=== PATIENT | female | born 1975 | race Caucasian/White ===

== ENCOUNTER 2017-01-22 06:55 | Day surgery (SDC) | payer BC ==
[~2017-01-22] VITALS: Ht 162.6 cm; Wt 55.3 kg
[~2017-01-22 06:55] MED LIST: LEXAPRO20 MG PO; ONDANSETRON4 MG PO
[2017-01-22] MEDS ORDERED: PERCOCET 5/325M1 TAB PO (11:06)
[2017-01-22 14:16] VITALS: BP 104/57
== END 2017-01-22 11:55 | disposition home or self-care (01) | DRG 419 ==
LOC: ORM 06:55
PROVIDERS: ATTEND Surgery
PROC: 0FT44ZZ Resection of Gallbladder, Percutaneous Endoscopic Approach (ICD-10-PCS; principal; 2017-01-22)
DX: K80.10 Calculus of gallbladder with chronic cholecystitis without obstruction (principal)
CPT/HCPCS: J2710

== ENCOUNTER 2017-07-02 20:13 | Emergency (ER) | payer BC ==
[~2017-07-02] VITALS: Ht 162.6 cm; Wt 59.0 kg
[~2017-07-02 20:13] MED LIST changes: +PERCOCET 5/325M1 TAB PO
[2017-07-02] MEDS ORDERED: LORTAB 1010 MG PO (21:54)
[2017-07-02 22:10] VITALS: BP 111/66
== END 2017-07-02 22:10 | disposition home or self-care (01) | DRG 563 ==
LOC: ED 20:13
DX: S83.91XA Sprain of unspecified site of right knee, initial encounter (principal); W18.30XA Fall on same level, unspecified, initial encounter; Y92.009 Unspecified place in unspecified non-institutional (private) residence as the place of occurrence of the external cause

== ENCOUNTER 2018-06-13 13:07 | Emergency (ER) | payer BC ==
[~2018-06-13] VITALS: Ht 162.6 cm; Wt 68.0 kg
[~2018-06-13 13:07] MED LIST changes: +LORTAB 1010 MG PO
[2018-06-13 13:50] LABS: HEMATOCRIT 41.8 % (37.0-47.0); HEMOGLOBIN 13.4 g/dl (12.0-16.0); MEAN CELL VOLUME 93.1 fL CALC (80.0-100.0); MEAN CORPUSCULAR HGB 29.8 pG CALC (26.0-32.0); MEAN CORPUSCULAR HGB CONC 32.1 g/L CALC (32.0-36.0); RED BLOOD COUNT 4.49 mill/uL (4.20-5.60); RED CELL DISTRI WIDTH 12.3 % (11.5-15.5)
[2018-06-13 13:59] LABS: ALBUMIN 4.2 g/dL (3.2-5.0); ALKALINE PHOSPHATASE 92 u/l (38-126); ANION GAP 13 (6-22 (CALC)); BILIRUBIN, TOTAL 0.8 mg/dL (0.0-1.4); BUN 17 mg/dL (7-17); BUN/CREATININE RATIO 21 (12-20 (CALC)); CARBON DIOXIDE 28 mmol/l (22-30); CHLORIDE 101 mmol/l (95-108); CREATININE 0.8 mg/dL (0.5-1.0); GFR > 60 ML/MIN (>=60 (CALC)); GFR FOR AFR.AMER. > 60 ML/MIN (>=60 (CALC)); LIPASE 138 u/l (23-300); POTASSIUM 3.9 mmol/l (3.5-5.1); SODIUM 138 mmol/l (137-146); TOTAL PROTEIN 7.2 g/dL (6.3-8.2)
[2018-06-13 14:14] LABS: SGOT/AST 276 u/l (14-36)
[2018-06-13] MEDS ORDERED: PRILOSEC20 MG PO (16:08)
[2018-06-13] MEDS ORDERED: AMITRIPTYLIN25 MG PO (16:08)
[2018-06-13] MEDS ORDERED: MELOXICAM15 MG PO (16:08)
[2018-06-13] MEDS ORDERED: ULTRAM50 M1 PO (18:09)
[2018-06-13 18:30] VITALS: BP 98/55
== END 2018-06-13 18:30 | disposition home or self-care (01) | DRG 392 ==
LOC: ED 13:07
PROVIDERS: Emergency Medicine
DX: R10.13 Epigastric pain (principal); R11.0 Nausea; K21.9 Gastro-esophageal reflux disease without esophagitis; R94.31 Abnormal electrocardiogram [ECG] [EKG]
CPT/HCPCS: Q9967

== ENCOUNTER 2021-07-12 17:05 | Emergency (ER) | payer BC ==
[2021-07-12] VITALS (10 sets, daily range): BP systolic 99–126; BP diastolic 56–72
[~2021-07-12] VITALS: Ht 162.6 cm; Wt 68.0 kg
[~2021-07-12 17:05] MED LIST changes: +AMITRIPTYLIN25 MG PO; +MELOXICAM15 MG PO; +PRILOSEC20 MG PO; +ULTRAM50 M1 PO
[2021-07-12 17:46] LABS: HEMATOCRIT 41.7 % (37.0-47.0); IMMATURE GRANULOCYTES 0.2 % (0.0-5.0); MEAN CELL VOLUME 89.1 fL CALC (80.0-100.0); MEAN CORPUSCULAR HGB 29.9 pG CALC (26.0-32.0); MEAN CORPUSCULAR HGB CONC 33.6 g/dL CAL (32.0-36.0); NEUT# 2.12 thou/uL (2.00-7.15); RED BLOOD COUNT 4.68 mill/uL (4.20-5.60); RED CELL DISTRI WIDTH 12.5 % (11.5-15.5)
[2021-07-12 17:59] LABS: ALBUMIN 4.2 g/dL (3.2-5.0); ALKALINE PHOSPHATASE 74 u/l (38-126); BILIRUBIN, TOTAL 0.5 mg/dL (0.0-1.4); BUN 9 mg/dL (7-17); BUN/CREATININE RATIO 9 (12-20 (CALC)); CARBON DIOXIDE 28 mmol/l (22-30); CHLORIDE 98 mmol/l (95-108); CPK 135 u/l (30-165); GFR 60 ML/MIN (>=60 (CALC)); GFR FOR AFR.AMER. > 60 ML/MIN (>=60 (CALC)); LIPASE 88 u/l (23-300); MAGNESIUM 1.9 mg/dL (1.6-2.3); SGOT/AST 40 u/l (14-36); TOTAL PROTEIN 7.3 g/dL (6.3-8.2)
[2021-07-12 18:00] LABS: ANION GAP 10 (6-22 (CALC)); POTASSIUM 3.3 mmol/l (3.5-5.1); SODIUM 133 mmol/l (137-146)
== END 2021-07-12 21:57 | disposition home or self-care (01) | DRG 948 ==
LOC: ED 17:05
PROVIDERS: Internal Medicine
DX: R53.1 Weakness (principal); R42 Dizziness and giddiness; R00.2 Palpitations; R06.02 Shortness of breath; R94.31 Abnormal electrocardiogram [ECG] [EKG]; K21.9 Gastro-esophageal reflux disease without esophagitis; F32.A Depression, unspecified; F41.9 Anxiety disorder, unspecified

== ENCOUNTER 2021-12-23 21:14 | Observation (INO) | payer BC ==
[~2021-12-23] VITALS: Ht 162.6 cm; Wt 65.0 kg
[2021-12-23 21:19] VITALS: BP 106/84
[2021-12-23 21:30] VITALS: BP 107/66
[2021-12-23 21:32] VITALS: BP 101/76
[2021-12-23 21:43] LABS: HEMATOCRIT 41.6 % (37.0-47.0); HEMOGLOBIN 13.9 g/dl (12.0-16.0); IMMATURE GRANULOCYTES 0.2 % (0.0-5.0); MEAN CELL VOLUME 89.1 fL CALC (80.0-100.0); MEAN CORPUSCULAR HGB 29.8 pG CALC (26.0-32.0); MEAN CORPUSCULAR HGB CONC 33.4 g/dL CAL (32.0-36.0); NEUT# 3.69 thou/uL (2.00-7.15); RED BLOOD COUNT 4.67 mill/uL (4.20-5.60); RED CELL DISTRI WIDTH 12.6 % (11.5-15.5)
[2021-12-23 22:00] VITALS: BP 115/75
[2021-12-23 22:01] LABS: ALBUMIN 4.6 g/dL (3.2-5.0); ANION GAP 15 (6-22 (CALC)); BUN 13 mg/dL (7-17); BUN/CREATININE RATIO 12 (12-20 (CALC)); CARBON DIOXIDE 25 mmol/l (22-30); CHLORIDE 98 mmol/l (95-108); CREATININE 1.1 mg/dL (0.5-1.0); GFR FOR AFR.AMER. > 60 ML/MIN (>=60 (CALC)); GFR OTHER RACES 54 ML/MIN (>=60 (CALC)); POTASSIUM 3.1 mmol/l (3.5-5.1); SODIUM 135 mmol/l (137-146)
--- NOTE | 2021-12-23 22:05 | NUR ---
ASSUMED CARE FROM PRIETO MONCADA
[2021-12-23 22:12] LABS: ALKALINE PHOSPHATASE 120 u/l (38-126); BILIRUBIN, TOTAL 0.8 mg/dL (0.0-1.4); LIPASE 2514 u/l (23-300); MYOGLOBIN 123 ng/mL (0 - 62); SGOT/AST 93 u/l (14-36)
[2021-12-23 22:26] LABS: URINE BLOOD DIPSTICK NEGATIVE (NEGATIVE); URINE COLOR YELLOW; URINE GLUCOSE - DIPSTICK NEGATIVE (NEGATIVE); URINE KETONE TRACE mg/dL (NEGATIVE); URINE PH 6.5 (4.5-8.0); URINE PROTEIN - DIPSTICK 100 mg/dL (NEG-TRACE); URINE SPECIFIC GRAVITY 1.025
[2021-12-23 22:27] LABS: URINE BILIRUBIN - DIPSTICK MODERATE (NEGATIVE); URINE LEUK ESTERASE SMALL (NEGATIVE); URINE NITRITE - DIPSTICK NEGATIVE (Negative)
[2021-12-23 22:30] VITALS: BP 105/62
[2021-12-23 22:32] LABS: URINE BACTERIA FEW hpf; URINE MUCUS MANY hpf (NONE-FEW); URINE SQUAMOUS EPITHELIAL CELL FEW EPI/hpf (0-FEW)
[2021-12-23 23:30] VITALS: BP 90/45
[2021-12-24] VITALS: BP 96/55
[2021-12-24 00:30] VITALS: BP 95/53
--- NOTE | 2021-12-24 01:00 | NUR ---
RECEIVED INTO ROOM 266 FROM ED VIA WC. TRANSFERRED TO BED INDEPENDANTLY. DENIES ANY PAIN, NAUSEA OR VOMITING AT THE PRESENT. CALL LIGHT PLACED IN REACH AND PATIENT ORIENTED TO ROOM AND USE OF LIGHT.
[2021-12-24 01:01] VITALS: BP 86/44
[2021-12-24 08:11] VITALS: BP 134/86
--- NOTE | 2021-12-24 08:20 | NUR ---
RECIEVED REPORT. PT RESTING IN SEMI FOWLERS POSITION. PT A/OX3. RESPIRATIONS EVEN AND UNLABORED ON ROOM AIR. LUNG SOUNDS CLEAR. HEART RHYTHM NORMAL. BOWEL SOUNDS ACTIVE. #20G RAC INFUSING WITH IVF PER ORDER, SITE PATENT. SKIN INTACT. PT DENIES OF ANY PAINS OR DISCOMFORTS. ALL SAFTEY PRECAUTIONS ARE IN PLACE WITH CALL LIGHT IN REACH. ISOLATION PRECAUTIONS IN PLACE
[2021-12-24 08:51] LABS: HEMATOCRIT 36.7 % (37.0-47.0); HEMOGLOBIN 11.9 g/dl (12.0-16.0); MEAN CELL VOLUME 91.3 fL CALC (80.0-100.0); MEAN CORPUSCULAR HGB 29.6 pG CALC (26.0-32.0); MEAN CORPUSCULAR HGB CONC 32.4 g/dL CAL (32.0-36.0); RED BLOOD COUNT 4.02 mill/uL (4.20-5.60); RED CELL DISTRI WIDTH 12.9 % (11.5-15.5)
[2021-12-24 09:17] LABS: BILIRUBIN, TOTAL 0.5 mg/dL (0.0-1.4)
[2021-12-24 09:22] LABS: ALBUMIN 3.5 g/dL (3.2-5.0); TOTAL PROTEIN 6.3 g/dL (6.3-8.2)
[2021-12-24] MEDS ORDERED: ZOFRAN4 MG/TAB PO (11:32)
--- NOTE | 2021-12-24 11:48 | NUR ---
PT RESTING IN SEMI FOWLERS POSITION. RESPIRATIONS EVEN AND UNLABORED ON ROOM AIR. IV ISTE NOTED. PT DENIES OF ANY COMPLAINTS. ALL SAFTEY PRECAUTIONS AR EIN PLACE WITH CALL LIGHT IN REACH
--- NOTE | 2021-12-24 12:34 | NUR ---
Discharge instructions given. Patient verbalizes understanding of same. Discharged in stable condition via Wheelchair to Home with staff. All belongings sent with pt. PT EDUCATED ON DC INSTRUCTIONS AND NEW MEDICATIONS. PT VERBLAIZED UNDERSTANDING. IV REMOVED WITH CATH INTACT
== END 2021-12-24 12:36 | disposition home or self-care (01) | DRG 177 ==
LOC: ED 21:14 → MS2 23:42
PROVIDERS: Family Medicine; Nurse Practitioner; ADMIT Internal Medicine; ATTEND Internal Medicine
DX: U07.1 COVID-19 (principal); K85.90 Acute pancreatitis without necrosis or infection, unspecified; E87.6 Hypokalemia; F41.9 Anxiety disorder, unspecified; F32.A Depression, unspecified; K21.9 Gastro-esophageal reflux disease without esophagitis; H81.09 Meniere's disease, unspecified ear; Z28.310 Unvaccinated for COVID-19
CPT/HCPCS: G0378; J1650; Q9967; S0164

== ENCOUNTER 2022-11-29 12:36 | Emergency (ER) | payer SELFPAY ==
[~2022-11-29] VITALS: Ht 162.6 cm; Wt 65.7 kg
[2022-11-29] VITALS (9 sets, daily range): BP systolic 96–125; BP diastolic 60–78
[~2022-11-29 12:36] MED LIST changes: +ZOFRAN4 MG/TAB PO
[2022-11-29 12:59] LABS: URINE BILIRUBIN - DIPSTICK Negative (NEGATIVE); URINE BLOOD DIPSTICK Negative (NEGATIVE); URINE GLUCOSE - DIPSTICK Negative (NEGATIVE); URINE KETONE Negative (NEGATIVE); URINE NITRITE - DIPSTICK Negative (Negative); URINE PROTEIN - DIPSTICK Negative (NEG-TRACE); URINE SPECIFIC GRAVITY >=1.030; URINE UROBILINOGEN - DIPSTICK 0.2 E.U./dL (0.2)
[2022-11-29 13:00] LABS: URINE COLOR Yellow; URINE LEUK ESTERASE Small (NEGATIVE)
[2022-11-29 13:03] LABS: URINE BACTERIA FEW hpf; URINE SQUAMOUS EPITHELIAL CELL FEW EPI/hpf (0-FEW)
[2022-11-29 13:05] LABS: URINE TRANSITIONAL EPI. CELLS FEW hpf
[2022-11-29 13:22] LABS: EOS% 1.8 % (0-8); HEMATOCRIT 40.4 % (37.0-47.0); HEMOGLOBIN 13.6 g/dl (12.0-16.0); LYMPH% 27.9 % (15-41); MEAN CORPUSCULAR HGB 30.3 pG CALC (26.0-32.0); MEAN CORPUSCULAR HGB CONC 33.7 g/dL CAL (32.0-36.0); MONO% 12.1 % (2-13); NEUT# 2.89 thou/uL (2.00-7.15); NEUT% 57.2 % (42-76); RED BLOOD COUNT 4.49 mill/uL (4.20-5.60); RED CELL DISTRI WIDTH 12.9 % (11.5-15.5)
[2022-11-29 13:50] LABS: BILIRUBIN, TOTAL 0.6 mg/dL (0.02-1.3); CREATININE 1.2 mg/dL (0.5-1.0); POTASSIUM 3.6 mmol/l (3.5-5.1)
[2022-11-29 13:51] LABS: ALBUMIN 4.4 g/dL (3.2-5.0); TOTAL PROTEIN 7.8 g/dL (6.3-8.2)
[2022-11-29] MEDS ORDERED: KEFLEX500 MG PO (15:39)
[2022-11-29] MEDS ORDERED: TRAMADOL HYDROC50 M1 PO (15:39)
[2022-11-29] MEDS ORDERED: MIRALAX17 GM PO (15:39)
== END 2022-11-29 15:40 | disposition home or self-care (01) | DRG 392 ==
LOC: ED 12:36
PROVIDERS: Nurse Practitioner
DX: K59.00 Constipation, unspecified (principal); N39.0 Urinary tract infection, site not specified; F41.9 Anxiety disorder, unspecified; F32.A Depression, unspecified; K21.9 Gastro-esophageal reflux disease without esophagitis

== ENCOUNTER 2023-10-23 19:49 | Emergency (ER) | payer BC ==
[~2023-10-23] VITALS: Ht 162.6 cm; Wt 65.0 kg
[~2023-10-23 19:49] MED LIST changes: +KEFLEX500 MG PO; +MIRALAX17 GM PO; +TRAMADOL HYDROC50 M1 PO
[2023-10-23] MEDS ORDERED: Pantoprazole Sodium 40 MG VIAL (Protonix) IV STA (20:10)
[2023-10-23] MEDS ORDERED: SODIUM CHLORIDE 0.9% 1,000 ML IV STA (20:10)
[2023-10-23] MEDS ORDERED: PROMETHAZINE HCL 25 MG/ML AMP IV ONE (20:15)
[2023-10-23] MEDS ORDERED: KETOROLAC TROMETHAMINE 30 MG/ML SDV IV ONE (20:15)
[2023-10-23 20:42] VITALS: BP 106/66
[2023-10-23 20:46] VITALS: BP 99/64
[2023-10-23 20:57] LABS: BASO% 0.6 % (0-3); EOS% 0.4 % (0-8); HEMATOCRIT 42.3 % (37.0-47.0); HEMOGLOBIN 14.1 g/dl (12.0-16.0); LYMPH% 25.5 % (15-41); MEAN CELL VOLUME 87.4 fL CALC (80.0-100.0); MEAN CORPUSCULAR HGB 29.1 pG CALC (26.0-32.0); MEAN CORPUSCULAR HGB CONC 33.3 g/dL CAL (32.0-36.0); MONO% 13.2 % (2-13); NEUT# 2.89 thou/uL (2.00-7.15); NEUT% 60.3 % (42-76); RED BLOOD COUNT 4.84 mill/uL (4.20-5.60); RED CELL DISTRI WIDTH 12.8 % (11.5-15.5)
[2023-10-23 21:00] VITALS: BP 94/66
[2023-10-23 21:08] LABS: ALBUMIN 4.6 g/dL (3.2-5.0); BILIRUBIN, TOTAL 0.5 mg/dL (0.02-1.3); CREATININE 1.3 mg/dL (0.5-1.0); POTASSIUM 3.2 mmol/l (3.5-5.1); TOTAL PROTEIN 7.9 g/dL (6.3-8.2)
[2023-10-23 21:09] LABS: URINE BLOOD DIPSTICK Negative (NEGATIVE); URINE GLUCOSE - DIPSTICK Negative (NEGATIVE); URINE KETONE Trace mg/dL (NEGATIVE); URINE LEUK ESTERASE Negative (NEGATIVE); URINE NITRITE - DIPSTICK Negative (Negative); URINE PROTEIN - DIPSTICK 30 mg/dL (NEG-TRACE); URINE SPECIFIC GRAVITY >=1.030
[2023-10-23 21:10] LABS: URINE COLOR Yellow; URINE RBC 0-2 RBC/hpf (0-5); URINE SQUAMOUS EPITHELIAL CELL FEW EPI/hpf (0-FEW); URINE WBC 0-2 WBC/hpf (0-5)
[2023-10-23] MEDS ORDERED: DICYCLOMINE HCL 20 MG/2 ML VIAL IM ONE (21:40)
[2023-10-24] VITALS: BP 102/67
[2023-10-24] MEDS ORDERED: DICYCLOMINE HYD10 MG PO (00:04)
[2023-10-24] MEDS ORDERED: PROMETHAZINE HY25 M1 PO (00:04)
== END 2023-10-24 01:00 | disposition home or self-care (01) | DRG 392 ==
LOC: ED 19:49
PROVIDERS: Family Medicine
DX: A08.4 Viral intestinal infection, unspecified (principal); F17.290 Nicotine dependence, other tobacco product, uncomplicated; Z20.822 Contact with and (suspected) exposure to COVID-19
CPT/HCPCS: J2470; Q9967

== ENCOUNTER 2024-03-18 09:10 | Emergency (ER) | payer BC ==
[2024-03-18] VITALS (8 sets, daily range): BP systolic 109–126; BP diastolic 62–73
[~2024-03-18] VITALS: Ht 162.6 cm; Wt 65.0 kg
[~2024-03-18 09:10] MED LIST changes: +DICYCLOMINE HYD10 MG PO; +PROMETHAZINE HY25 M1 PO
[2024-03-18] MEDS ORDERED: predniSONE 20 MG/TAB PO ONE (10:25)
[2024-03-18] MEDS ORDERED: IPRATROPIUM-Albuterol 0.5MG-2.5MG/3 ML NEB ONE ×2 (10:25)
[2024-03-18 10:42] LABS: HEMATOCRIT 40.6 % (37.0-47.0); HEMOGLOBIN 13.2 g/dl (12.0-16.0); LYMPH% 26.9 % (15-41); MEAN CELL VOLUME 89.4 fL CALC (80.0-100.0); MEAN CORPUSCULAR HGB 29.1 pG CALC (26.0-32.0); MEAN CORPUSCULAR HGB CONC 32.5 g/dL CAL (32.0-36.0); MONO% 10.9 % (2-13); NEUT# 2.17 thou/uL (2.00-7.15); NEUT% 62.2 % (42-76); RED BLOOD COUNT 4.54 mill/uL (4.20-5.60); RED CELL DISTRI WIDTH 13.3 % (11.5-15.5)
[2024-03-18 10:54] LABS: ALBUMIN 4.3 g/dL (3.2-5.0); ALKALINE PHOSPHATASE 87 u/l (38-126); ANION GAP 10 (6-22 (CALC)); BILIRUBIN, TOTAL 0.4 mg/dL (0.02-1.3); BUN 13 mg/dL (7-17); BUN/CREATININE RATIO 14 (12-20 (CALC)); CARBON DIOXIDE 31 mmol/l (22-30); CHLORIDE 97 mmol/l (95-108); ESTIMATED GFR 70 ML/MIN (>=90 (CALC)); POTASSIUM 3.3 mmol/l (3.5-5.1); SODIUM 135 mmol/l (137-146); TOTAL PROTEIN 7.2 g/dL (6.3-8.2)
[2024-03-18 11:01] LABS: SGOT/AST 89 u/l (14-36)
[2024-03-18] MEDS ORDERED: PREDNISONE50 MG PO (12:40)
[2024-03-18] MEDS ORDERED: ZPAK PO (12:40)
[2024-03-18] MEDS ORDERED: VENTOLIN HFA108 MCG PO (12:40)
== END 2024-03-18 12:50 | disposition home or self-care (01) | DRG 153 ==
LOC: ED 09:10
PROVIDERS: Family Medicine
DX: J06.9 Acute upper respiratory infection, unspecified (principal)